=== PATIENT | male | born 1975 | race Caucasian/White ===

== ENCOUNTER 2018-08-09 17:24 | Emergency (ER) | payer SELFPAY | END 2018-08-09 18:15 | disposition home or self-care (01) | LOC: MADERS 17:24 | DX: L25.9 Unspecified contact dermatitis, unspecified cause (principal); B20 Human immunodeficiency virus [HIV] disease; Z87.891 Personal history of nicotine dependence; Z79.899 Other long term (current) drug therapy | CPT/HCPCS: 99282 ==

== ENCOUNTER 2018-08-15 08:21 | Emergency (ER) | payer SELFPAY ==
[2018-08-15] MEDS ORDERED: Dexamethasone 10 MG/ML VIAL ONE (09:22)
== END 2018-08-15 09:30 | disposition home or self-care (01) ==
LOC: MADERS 08:21
DX: L23.7 Allergic contact dermatitis due to plants, except food (principal); B20 Human immunodeficiency virus [HIV] disease; Z87.891 Personal history of nicotine dependence; Z79.899 Other long term (current) drug therapy
CPT/HCPCS: 99282; J1100

== ENCOUNTER 2018-09-20 08:57 | Emergency (ER) | payer SELFPAY | END 2018-09-20 10:37 | disposition home or self-care (01) | LOC: MADERS 08:57 | DX: J01.90 Acute sinusitis, unspecified (principal); J45.909 Unspecified asthma, uncomplicated; B20 Human immunodeficiency virus [HIV] disease; Z87.891 Personal history of nicotine dependence; Z79.899 Other long term (current) drug therapy | CPT/HCPCS: 87804; 99283 ==

== ENCOUNTER 2019-02-18 07:46 | Emergency (ER) | payer SELFPAY | END 2019-02-18 08:20 | disposition home or self-care (01) | LOC: MADERS 07:46 | DX: L03.115 Cellulitis of right lower limb (principal); J45.909 Unspecified asthma, uncomplicated; B20 Human immunodeficiency virus [HIV] disease; Z87.891 Personal history of nicotine dependence; Z79.899 Other long term (current) drug therapy | CPT/HCPCS: 99282 ==

== ENCOUNTER 2019-03-15 14:44 | Emergency (ER) | payer SELFPAY | END 2019-03-15 15:40 | disposition home or self-care (01) | LOC: MADERS 14:44 | DX: R11.2 Nausea with vomiting, unspecified (principal); R19.7 Diarrhea, unspecified; J45.909 Unspecified asthma, uncomplicated; Z87.891 Personal history of nicotine dependence | CPT/HCPCS: 99283 ==

== ENCOUNTER 2021-05-19 20:08 | Emergency (ER) | payer OTHER, SELFPAY ==
[2021-05-19] MEDS ORDERED: Ibuprofen 800 MG TAB ONE (20:38)
[2021-05-19 21:21] LABS: SARS-CoV-2 NAA Rapid Test Not Detected (NotDetected)
== END 2021-05-19 21:40 | disposition home or self-care (01) ==
LOC: MADERS 20:08
DX: R50.9 Fever, unspecified (principal); R06.02 Shortness of breath; R05 Cough; R51.9 Headache, unspecified; Z20.822 Contact with and (suspected) exposure to COVID-19; I10 Essential (primary) hypertension; J44.9 Chronic obstructive pulmonary disease, unspecified; Z87.01 Personal history of pneumonia (recurrent); Z21 Asymptomatic human immunodeficiency virus [HIV] infection status; Z87.891 Personal history of nicotine dependence; Z89.012 Acquired absence of left thumb; Z89.422 Acquired absence of other left toe(s)
CPT/HCPCS: 0240U; 71046